=== PATIENT | female | born 1945 | race Caucasian/White ===

== ENCOUNTER 2022-05-16 13:34 | Outpatient (CLI) | payer MEDICARE, OTHER ==
[~2022-05-16 13:34] MED LIST: Magnevist 469MG/ML 20 ML VIAL ONE
== END 2022-05-16 13:35 | disposition home or self-care (01) ==
LOC: CSHMRI 13:34
PROVIDERS: ATTEND Neurological Surgery
DX: M54.16 Radiculopathy, lumbar region (principal); M47.816 Spondylosis without myelopathy or radiculopathy, lumbar region; Z98.890 Other specified postprocedural states
CPT/HCPCS: 72100; 72158; 82565; A9579